=== PATIENT | male | born 1945 | race Caucasian/White ===

== ENCOUNTER → 2018-09-13 07:47 | Outpatient (CLI) | payer MEDICARE, OTHER ==
[~2018-09-13] VITALS: Ht 177.8 cm; Wt 159.1 kg
--- NOTE | ~2018-09-13 | HEMODYNAMI ---
PATIENT:JESSICA MCKEON MEDICAL RECORD: [id number] : 49 LOCATION:[facility] ADMISSION DATE: 09/13/18 Generatedon:09/13/201810:28 Patient name: JESSICA MCKEON Patient #: [id number] SSN: DO B: 1945 Date of study: 09/13/2018 Page: Of Hemodynamic Procedure Report Patient Data Patient Demographics Procedure consent was obtained First Name: JESSICA Gender: Male Last Name: MIKE : 1945 [facility] Initial: ELLIOTT Age: 72 year(s) Patient #: [id number] Race: Unknown Additional ID: [id number] Contact details [address]: [address] [place] [address] State: [place] City: [place] Zip code: [address] Past Medical History Allergies Allergen Reaction Date Comments Reported Other allergy 09/13/2018 cephalexin Admission Admission Data Admission Date: 09/13/2018 Admission Time: 7:47 Admit Source: Other Lab Results Lab Result Date: 09/13/2018 Lab Result Time: 8:25 Biochemistry Name Units Result Min Max BUN mg/dl 15 --(--*-)-- 7 18 Creatinine mg/dl 1.3 --(---*)-- 0.6 1.3 CBC Name Units Result Min Max Hematocrit % 46.4 --(-*--)-- 42 54 Hemoglobin g/dl 14.2 --(*---)-- 13.5 17.5 Procedure Procedure Types Cath Procedure Diagnostic Procedure LHC LHC w/Coronaries FFR/IVUS Intra-Coronary IVUS Initial Procedure Description Procedure Date Procedure Date: 09/13/2018 Procedure Start Time: 10:09 Procedure End Time: 10:26 Procedure Staff Name Function Fly Brizuela MD Performing Physician Jean Claude Guevara RT Monitor Pau Perez RT Scrub Can Davis RN Water Project Manager Robyn Weaver RN Water Project Manager Procedure Data Cath Procedure Fluoroscopy Diagnostic fluoroscopy Total fluoroscopy Time: 3.6 time: 3.6 min min Diagnostic fluoroscopy Total fluoroscopy dose: 964 dose: 964 mGy mGy Contrast Material Contrast Material Type Amount (ml) Isovue 300 90 Entry Location Entry Primary Successful Side Size Upsize Upsize Entry Closure Amin ccessful Closure Location (Fr) 1 (Fr) 2 (Fr) Remarks Device Remarks Radial Right 6 Fr Mechanical artery Short Compression Estimated blood loss: 10 ml Diagnostic catheters Device Type Used For End Catheter Placement DIAGNOSTIC [place] 110cm 5 Procedure Fr catheter ([id number]) Procedure Complications No complications Procedure Medications Medication Administration Route Dosage 0.9% NaCl I.V. 100 ml/hr Oxygen etCO2 Nasal cannula 2 l/min Lidocaine 2% added to field 20 Heparin Flush Bag added to field 2 bags (1000units/500ml NS) Radial Cocktail added to field 1 syringe (Verapomil 2mg/Nitro 400mcg/Heparin 1500units) Versed I.V. 2 mg Fentanyl I.V. 100 mcg Fentanyl I.V. 50 mcg Heparin Bolus I.V. 4000 units Integrilin (Bolus I.V. 11.3 ml 2mg/ml) Versed I.V. 2 mg Plavix P.O. 600 mg Hemodynamics Rest HGB: 14.2 (g/dl) Heart Rate: 83 (bpm) Pressure Samples Time Site Value (mmHg) Purpose Heart Use Rate(bpm) 10:11 LV 114/12,13 Snapshot 91 Snapshots Pre Cath Intra NCS Post Cath Vital Signs Time Heart Resp SPO2 etCO2 NIBP (mmHg) Rhythm Pain Sedation Rate (ipm) (%) (mmHg) Status Level (bpm) 9:45:57 81 12 100 34.9 150/88(117) NSR 0 (11) 10(A) , No pain 9:50:29 88 15 100 42 141/84(108) NSR 0 (11) 10(A) , No pain 9:54:51 80 11 99 43 124/73(95) NSR 0 (11) 10(A) , No pain 9:59:15 80 12 98 42 123/72(94) NSR 0 (11) 10(A) , No pain 10:03:40 81 13 99 44.8 114/74(95) NSR 0 (11) 10(A) , No pain 10:07:59 79 10 98 45 125/69(96) NSR 0 (11) 10(A) , No pain 10:12:24 84 15 96 44 122/71(96) NSR 0 (11) 9(A) , No pain 10:16:48 90 18 97 46 124/70(100) NSR 0 (11) 9(A) , No pain 10:21:12 87 19 97 44.3 120/69(84) NSR 0 (11) 10(A) , No pain 10:25:39 96 32 96 36.4 114/104(111) NSR 0 (11) 10(A) , No pain Medications Time Medication Route Dose Verified Delivered Reason Not es Effectiveness by by 9:54:52 0.9% NaCl I.V. 100 Fly Robyn used for ml/hr Chata Weaver cake washer 9:54:59 Oxygen etCO2 2 l/min Fly Robyn used for Nasal Chata Weaver procedure cannula RN 9:55:06 Lidocaine 2% added 20ml Fly Fly for local to vial Chata Brizuela MD anesthetic field 9:55:12 Heparin Flush added 2 bags Fly Fly used for Bag to Chata Brizuela MD procedure (1000units/500ml field NS) 9:55:21 Radial Cocktail added 1 Fly Fly used for (Verapomil to syringe Chata Brizuela MD procedure 2mg/Nitro field 400mcg/Heparin 1500units) 10:07:51 Versed I.V. 2 mg Fly Robyn for sedation Chata Weaver RN 10:07:58 Fentanyl I.V. 100 mcg Fly Robyn for sedation Chata Weaver RN 10:18:05 Versed I.V. 2 mg Fly Robyn for sedation Chata Weaver RN 10:18:32 Fentanyl I.V. 50 mcg Fly Robyn for sedation Chata Weaver RN 10:18:47 Heparin Bolus I.V. 4000 Fly Robyn for ramin ified units Chata Weaver anticoagulation with dr SANDRA brizuela 10:20:12 Integrilin I.V. 11.3 ml Fly Robyn for (Bolus 2mg/ml) Chata Weaver antiplatelet RN therapy 10:24:26 Plavix P.O. 600 mg Fly Robyn for Chata Weaver antiplatelet RN therapy Procedure Log Time Note 9:22:01 Admit Source: Other 9:22:18 Diagnostic Cath status Elective 9:22:19 Time tracking: Regular hours (M-F 7:00 - 5:00) 9:22:22 Plan of Care:Hemodynamics will remain stable., Cardiac rhythm will remain stable., Comfort level will be maintained., Respiratory function will remain adequate., Patient/ family verbilizes understanding of procedure., Procedure tolerated without complication., Recovers from procedure without complications.. 9:22:35 H&P Date Dictated: 08/22/2018 Within 30 days and on chart., H&P Addendum completed by physician on day of procedure. (MUST COMPLETE FOR ALL OUTPATIENTS). 9:30:24 Can Davis RN sent for patient. Start room use. 9:36:23 Patient received from Pre/Post Procedure Room to CCL 1 Alert and oriented. Tansferred to table in Supine position. 9:36:25 Warm blankets applied, and elvin hugger turned on for patient comfort. 9:36:25 Correct patient and procedure confirmed by team. 9:36:27 Signed procedure consent form obtained from patient. 9:36:28 ECG and BP/O2 sat monitors applied to patient. 9:36:29 Pre-procedure instructions explained to patient. 9:36:29 Pre-op teaching completed and patient verbalized understanding. 9:36:30 Family in waiting room. 9:36:32 Patient NPO since Midnight. 9:36:43 Patient allergic to Other allergycephalexin 9:44:30 Vital chart was started 9:53:00 Is the patient allergic to Iodine/contrast media? No. 9:53:20 Is patient on blood thinner?No 9:53:22 Patient diabetic? No. 9:53:24 Previous problem with sedation/anesthesia? No ? 9:53:27 Snore? Yes 9:53:28 Sleep apnea? Yes 9:53:29 Deviated septum? No 9:53:30 Opens mouth fully? Yes 9:53:32 Sticks out tongue? Yes 9:54:44 Airway obstruction? No ? 9:54:49 Dentures? No ? 9:54:52 0.9% NaCl 100 ml/hr I.V. was administered by Robyn Weaver RN; used for procedure; 9:54:52 Pre procedure: right dorsailis pedis pulse 2+ Normal; easily identifiable; not easily obliterated 9:54:53 Patient pain scale 0/10 ?. 9:54:56 Modified Nathan's test Ulnar < 7 seconds 9:54:59 Oxygen 2 l/min etCO2 Nasal cannula was administered by Robyn Weaver RN; used for procedure; 9:55:06 Lidocaine 2% 20ml vial added to field was administered by Fly Brizuela MD; for local anesthetic; 9:55:07 IV patent on arrival in left forearm with 0.9% NaCl at O. 9:55:12 Heparin Flush Bag (1000units/500ml NS) 2 bags added to field was administered by Fly Brizuela MD; used for procedure; 9:55:21 Radial Cocktail (Verapomil 2mg/Nitro 400mcg/Heparin 1500units) 1 syringe added to field was administered by Fly Brizuela MD; used for procedure; 9:55:50 Lab Result : BUN 15 mg/dl 9:55:50 Lab Result : Creatinine 1.3 mg/dl 9:55:50 Lab Result : Hemoglobin 14.2 g/dl 9:55:50 Lab Result : Hematocrit 46.4 % 9:56:20 Lab results completed and on chart. 9:56:25 Right Radial & Right Groin area was prepped with chlora-prep and draped in sterile fashion 9:56:26 Alarms reviewed by R. N. 9:56:26 Sharps counted by scrub and verified by R.N. 9:56:30 Use device set Radial Dx or PCI 9:56:30 ACIST Syringe (32528) opened to sterile field. 9:56:31 Medline Cath Pack ([id number]) opened to sterile field. 9:56:31 Bag Decanter (2002) opened to sterile field. 9:56:32 ACIST Manifold (31147) opened to sterile field. 9:56:32 ACIST Hand Control (73318) opened to sterile field. 9:56:33 Tegaderm 4 x 4 (1626W) opened to sterile field. 9:56:33 MBrace Wrist Support ([id number]) opened to sterile field. 9:56:34 SHEATH 6Fr Prelude Radial ([id number]) opened to sterile field. 9:56:35 DIAGNOSTIC WIRE .035 260cm J wire (230142) opened to sterile field. 9:56:40 Baseline sample Acquired. 9:56:43 Rhythm: sinus rhythm 9:56:45 Full Disclosure recording started 9:58:07 Zero performed for pressure channel P1 10:07:24 Physician arrived 10:07:24 --------ALL STOP TIME OUT------ 10:07:25 Final Timeout: patient, procedure, and site verified with staff and physician. All members of the team are in agreement. 10:07:27 Right Radial & Right Groin site verified by team. 10:07:30 Physical assessment completed. ASA score P 2 - A patient with mild systemic disease as per Fly Brizuela MD. 10:07:33 Sedation plan: IV Moderate Sedation Medication:Versed, Fentanyl 10:07:51 Versed 2 mg I.V. was administered by Robyn Weaver RN; for sedation; ::58 Fentanyl 100 mcg I.V. was administered by Robyn Weaver RN; for sedation; 10:09:39 Procedure started. 10:09:44 Local anesthetic to right radial artery with Lidocaine 2% by Fly Brizuela MD.INITIAL ACCESS ONLY 10:10:09 A 6 Fr Short sheath was inserted into the Right Radial artery 10:10:15 A DIAGNOSTIC [place] 110cm 5 Fr catheter (846861) was advanced over the wire and used for Procedure. 10:11:37 LV gram done using AG 10:11:40 Injector settings: Ml/sec: 5, Volume: 15, 10:11:43 LV hemodynamics recorded. 10:11:49 EF : 55 % 10:11:54 LCA angiography performed. 10:12:51 RCA angiography performed. 10:13:29 Catheter removed. 10:13:45 CHOICE PT Extra Support 182cm wire ([id number]) opened to sterile field. 10:13:45 Pickrell [place] IVUS Catheter (59691L) opened to sterile field. 10:13:46 INFLATOR Merit BasixCompak (XK3332) opened to sterile field. 10:14:21 GUIDE 6FR AR 2.0 catheter (CO3EM42) opened to sterile field. 10:14:27 6 Fr AR 2 guide catheter was inserted over the wire 10:14:31 CHOICE PT ES wire advanced. 10:15:30 Wire advanced across lesion. 10:15:33 IVUS catheter advanced over wire. 10:15:58 IVUS pass to RCA lesion performed. 10:18:05 Versed 2 mg I.V. was administered by Robyn Weaver RN; for sedation; 10:18:32 Fentanyl 50 mcg I.V. was administered by Robyn Weaver RN; for sedation; 10:18:47 Heparin Bolus 4000 units I.V. was administered by Robyn Weaver RN; for anticoagulation; verified with dr brizuela 10:19:08 IVUS catheter removed over wire. 10:20:00 TR BAND Large ([id number]) opened to sterile field. 10:20:11 Inflate balloon Inflation number: 1 A INTEGRITY RX 3.5 x 15 stent ([id number]) was prepped and advanced across the Prox RCA, then inflated to [address] for 0:10 (min:sec). 10:20:12 Integrilin (Bolus 2mg/ml) 11.3 ml I.V. was administered by Robyn Weaver RN; for antiplatelet therapy; 10:20:41 Stent catheter was removed intact over wire. 10:20:42 Wire removed. 10:20:43 Guide catheter removed. 10:20:54 Sheath removed intact; hemostasis achieved with Mechanical Compression to the Right Radial artery. 10:20:55 Procedure ended.(Physican Out) 10:21:04 Fluoroscopy time 03.60 minutes. 10::38 Fluoroscopy dose: 964 mGy 10:22:38 Flurop Dose total: 964 10:22:41 Contrast amount:Isovue 300 90ml. 10:22:42 Sharps counted by scrub and verified by R.N. 10:22:44 TR band inflated with 12cc of air. 10:22:44 Insertion/operative site no bleeding no hematoma. 10:22:47 Post Procedure Pulses reassessed and unchanged 10::50 Post-procedure physical assessment completed. ASA score P 2 - A patient with mild systemic disease as per Fly Brizuela MD. 10:22:52 Post procedure rhythm: unchanged. 10::54 Estimated blood loss: 10 ml 10::55 Post procedure instruction explained to patient.Patient verbalizes understanding. 10:22:55 Patient needs reinforcement of post procedure teaching. 10:23:02 Procedure type changed to Cath procedure, Diagnostic procedure, LHC, C w/Coronaries, FFR/IVUS, Intra-Coronary IVUS Initial 10:24:26 Plavix 600 mg P.O. was administered by Robyn Weaver RN; for antiplatelet therapy; 10:26:18 Procedure and supply charges have been captured, reviewed, submitted and are correct. 10:26:21 Procedure Complication : No complications 10::29 Vital chart was stopped 10:26:30 See physician's report for complete and final results. 10::31 Report given to Pre/Post Procedure Room. 10::33 Patient transfered to Pre/Post Procedure Room with Stretcher. 10::35 Procedure ended. 10::35 Full Disclosure recording stopped 10:26:51 End room use (Document Last) Intervention Summary Intervention Notes Time ActionType Lesion and Equipment Action# Pressure Duration Attributes Used 10:20:11 Inflate Prox RCA INTEGRITY RX 1 15 00:10 balloon 3.5 x 15 stent ([id number]) Device Usage Item Name Manufacture Quantity Catalog Number Hospital Part Current M inimal Lot# / Charge Number Stock Stock Serial# Code ACIST Syringe Acist 1 35456 404073 189183 633101 2 0 (48204) Medical Systems Inc Medline Cath Cardinal 1 [id number] 186274 44255 024473 5 Pack Health ([id number]) Bag Decanter Microtek 1 2002S 538144 08874 707808 5 (2001S) Medical Inc. ACIST Manifold Acist 1 27520 858308 931905 066731 5 (24741) Medical Systems Inc ACIST Hand Acist 1 12492 970442 042944 771638 5 Control (64548) Medical Systems Inc Tegaderm 4 x 4 3M 1 1626W 609530 173579 352854 5 (1626W) MBrace Wrist Advanced 1 140-0250-00 923871 44643 770969 5 Support Vascular ([id number]) Dynamics SHEATH 6Fr Merit 1 [id number] 393595 340280 620198 5 Prelude Radial Medical ([id number]) DIAGNOSTIC WIRE St Guillermo 1 220212 641504 262377 584454 3 0 .035 260cm J wire (061504) DIAGNOSTIC Terumo 1 19-9229 617799 877644 731558 5 [place] 110cm 5 Fr catheter (281723) CHOICE PT Extra [place] 1 [id number] 882327 916140 455727 5 Support 182cm Scientific wire ([id number]) Pickrell [place] 1 [id number] 138637 475505 781698 8 [employer] IVUS Catheter (14072H) INFLATOR Merit Merit 1 VW4845 460066 343535 023626 1 5 Positron Medical (TZ4871) GUIDE 6FR AR Medtronic 1 [id number] 007472 71958 794476 1 2.0 catheter (KT6IQ65) INTEGRITY RX Medtronic 1 [id number] 456861 877116 083474 5 [id number] 3.5 x 15 stent ([id number]) TR BAND Large Terumo 1 [id number] 015051 512043 200047 4 0 ([id number]) Signature Audit [place] Stage Time Signature Unsigned Intra-Procedure 09/13/2018 Jean Claude Guevara 10:28:36 AM RT(R) Signatures Monitor : Jean Claude Guevara RT Signature : Date : Time : [place] [id number] [place], [place] [address]
--- NOTE | ~2018-09-13 | OP ---
PATIENT NAME: JESSICA MCKEON MEDICAL RECORD: [id number] :49 LOCATION:D[facility] ADMISSION DATE: SURGEON: TY FLORES MD DATE OF OPERATION: 09/13/2018 PROCEDURES: 1. PTCA and stent of RCA. 2. Left heart catheterization. 3. Selective coronary angiography. 4. Left ventriculogram. 5. Intravascular ultrasound. INDICATION: Angina and coronary artery disease. DESCRIPTION OF PROCEDURE IN DETAIL: After informed consent was obtained and after a detailed explanation of the risks, benefits as well as alternative therapies, the patient elected to proceed with angiogram and angioplasty. The right radial area was prepped and draped in normal sterile fashion. Right radial artery was cannulated via modified Seldinger technique with placement of 6-Lithuanian sheath. All catheters exchanged through this sheath. FINDINGS: The left ventriculogram was performed in standard 30-degree AG view, reveals good cardiac wall motion throughout all segments. Overall ejection fraction estimated 60%. SELECTIVE CORONARY ANGIOGRAPHY: 1. Left main is with no significant angiographic disease. 2. Left anterior descending has mild irregularities, but no flow-limiting stenosis. 3. The left circumflex has mild irregularities, but no flow-limiting stenosis. 4. The right coronary has a 65% to 70% stenosis confirmed by intravascular ultrasound. PTCA AND STENT OF THE RCA: The stent used is a 3.5 x 15-mm Integrity. Result was 0% residual stenosis. OVERALL IMPRESSION: Successful PTCA and stent of the RCA going from 70% initial stenosis to 0% residual. TRANSINT:[id number] Voice Confirmation ID: [id number] DOCUMENT ID: [id number] TY FLORES MD at 0924 CC: [id number] DICTATION DATE: 09/13/18 1023 RIB CHOPPER: 09/13/18 1220 DEP CLI 09/13/18 [place] [id number] [place] [id number]
[~2018-09-13 07:47] MED LIST: ALEVE220 MG PO; BAYER CHEWABLE81 MG PO; BENADRYL INJ50 MG/ML PO; DHEA25 M1 PO; FOLIC ACID1 MG PO; GLUCOPHAGE500 MG PO; HUMALOG 30100 UNITS/ SC; K-TAB10 MEQ PO; LANTUS INSULIN10 ML SC; LISINOPRIL2.5 MG PO; MAG-OX 400 MG400 MG PO; METHOTREXATE2.5 MG PO; MULTIPLE VITAMI1 TA1 PO; NOVOLOG FLEX PEN SQ; PLAVIX75 MG PO; RITALIN20 MG PO; STERAPRED DS 1210 MG PO; SYNTHROID100 MCG PO; TRULICITY1.5 MG/0.5 SC; VICTOZA0.6 MG/0.1 SQ
[2018-09-13 08:42] VITALS: BP 131/68; Ht 177.8 cm; Wt 159.1 kg
[2018-09-13 08:50] LABS: ANION GAP 9.9 mmol/L (8-16); CALCIUM 8.6 mg/dL (8.5-10.1); CARBON DIOXIDE 31.5 mmol/L (21.0-32.0); CREATININE - SERUM 1.3 mg/dL (0.6-1.3); POTASSIUM - SERUM 4.4 mmol/L (3.5-5.1)
[2018-09-13 08:55] LABS: BASOPHILS 0.3 % (0-2); EOSINOPHILS 8.1 % (0-7); HEMATOCRIT 46.4 % (42.0-54.0); HEMOGLOBIN 14.2 g/dL (13.5-17.5); IMMATURE GRANULOCYTES 0.1 % (0-5); LYMPHOCYTES 12.7 % (15-50); MCH 26.1 pg (26.0-34.0); MCHC 30.6 g/dL (31.0-37.0); MCV 85.1 fL (80.0-100.0); MEAN PLATELET VOLUME 9.4 fL (7.4-10.4); MONOCYTES 9.9 % (2-11); NEUTROPHILS 68.9 % (40-80); RBC 5.45 10x6/uL (4.20-6.10); RDW 18.2 % (11.5-14.5); WBC 7.2 10x3/uL (4.8-10.8)
[2018-09-13 08:59] LABS: PLATELET COUNT 216 10x3/uL (130-400)
== END | disposition home or self-care (01) ==
LOC: D.CATH 07:47
PROVIDERS: Internal Medicine Interventional Cardiology
DX: I25.110 Atherosclerotic heart disease of native coronary artery with unstable angina pectoris (principal); R94.39 Abnormal result of other cardiovascular function study

== ENCOUNTER → 2018-10-31 09:41 | Outpatient (CLI) | payer OTHER ==
[2018-09-13 08:42] VITALS: BMI 50.3
--- NOTE | ~2018-10-31 | EC ---
PATIENT:JESSICA MCKEON DATE OF SERVICE: 10/31/18 SEX: M MEDICAL RECORD: [id number] DATE OF : 49 LOCATION:D.[facility] AGE OF PATIENT: 72 ADMISSION DATE: 10/31/18 REFERRING PHYSICIAN: INTERPRETING PHYSICIAN: BILILE DEGROOT MD ECHOCARDIOGRAM REPORT ECHO CHARGES 4 ECHO COMPLETE Date: 10/31/18 CLINICAL DIAGNOSIS: ISCHEMIC HEART DISEASE ECHOCARDIOGRAPHIC MEASUREMENTS (adult normal given) AC root (d.<3.7cm) 3.6 cm LV Septum d (<1.2 cm> 1.2 cm Valve Excursion 1.8 cm LV Septum (systole) 1.5 cm Left Atria (s.<4.0cm> 4.6 cm LVPW d(<1.2cm) 1.4 cm RV (d.<2.3cm) 3.2 cm LVPW (sytole) 1.5 cm LV diastole(<5.6CM) 6.5 cm MV E-F(>70mm/sec) cm LV systole 5.4 cm LVOT Diameter 2.1 cm MV exc.(>10mm) cm Est.ejection fraction (50-75%) % DOPPLER: LVIT cm/sec A 90.0 cm/sec E 77.0 cm/sec LA cm/sec RVSP 17.9 mmHg LVOT 113 cm/sec AOP1/2T m/s Asc. Ao 155 cm/sec RVOT 70 cm/sec RA cm/sec PA 73 cm/sec AV Gradient Peak 9.6 mmHg AV Mean 5.2 mmHg AV Area 2.5 cm MV Gradient Peak 5.10 mmHg MV Mean 3.0 mmHg MV Area cm COMMENTS: Environmental Control Administrator: Parminder GARBER Side Hemmer: 3 Dr. Neri TAPE# PACS Pericardial Effusion N DATE OF SERVICE: 10/31/2018 Adequate 2-D echo, color flow and spectral Doppler, and M-Mode. No LVH. LV internal dimensions are normal. Wall motion is normal. EF is greater than or equal to 55%. Aortic valve is tricuspid. No evidence of stenosis by Doppler interrogation. Left atrium is dilated at 4.6 cm. Mitral valve shows no prolapse. Trace MR. Right-sided chamber is normal. Trace TR. TRANSINT:[id number] Voice Confirmation ID: [id number] DOCUMENT ID: [id number] ECHOCARDIOGRAM REPORT [id number] JESSICA MCKEON,BILLIE Santos MD at 1310 CC: [id number] DICTATION DATE: 10/31/18 1252 TRUCK AND TRANSPORT MECHANIC: 10/31/18 1516 DEP CLI 10/31/18 [place] [id number] [place] [address]
== END | disposition home or self-care (01) ==
LOC: D.ECHO 09:41
DX: I25.9 Chronic ischemic heart disease, unspecified (principal)